=== PATIENT | female | born 1975 | race Caucasian/White ===

== ENCOUNTER 2017-05-12 20:42 | Emergency (ER) | payer OTHER ==
[2017-05-12 20:53] VITALS: RESP 16; TEMP 98.4; O2SAT 96
--- NOTE | 2017-05-12 21:37 | EDPHY ---
H & P Time Seen by Provider: 05/12/17 21:02 HPI/ROS: CHIEF COMPLAINT: Lip laceration HISTORY OF PRESENT ILLNESS: 41-year-old female presents emergency department with a small laceration to her upper lip. Patient was in the bathroom with her son when he reached up and held onto the shower curtain jovana when it fell striking her in the lip. No LOC, she remembers the entire accident, no neck pain, no loose teeth, tetanus is up to date. Smoking Status: Never smoked Physical Exam: GEN: Awake, alert, oriented, no acute distress RESP: nl resp effort, no loose teeth MSK: No C-spine tenderness SKIN: 0.5 cm vertical laceration to right side of upper lip through the vermilion border, full thickness with small 2 mm laceration to inside of lip. Constitutional: Initial Vital Signs Temperature (C) 36.9 C 05/12/17 20:49 Heart Rate 81 05/12/17 20:49 Respiratory Rate 16 05/12/17 20:49 Blood Pressure 124/97 H 05/12/17 20:49 O2 Sat (%) 96 05/12/17 20:49 O2 Delivery Mode Room Air Allergies/Adverse Reactions: ibuprofen Allergy (Verified 05/12/17 20:49) Home Medications: Medication Instructions Recorded NK [No Known Home Meds] 05/12/17 MDM/Departure - MDM Procedures: Procedure: Laceration repair. Verbal consent was obtained from the patient. The 0.5 cm laceration on the upper lip was anesthetized using 1% lidocaine without epinephrine. The wound was carefully irrigated by the emergency department chief technician. Next, the wound was prepped and draped in sterile fashion and explored to its base with a gloved finger. There were no deep structures involved. No vascular injury was identified. No foreign bodies were identified. The laceration is through the vermilion border. The wound was repaired with 6.0 Prolene, 4 simple interrupted sutures. The wound repair was simple. The procedure was performed by myself. Tetanus and antibiotic status were addressed. - Depart Disposition: Home, Routine, Self-Care Clinical Impression: Lip laceration Qualifiers: Encounter type: initial encounter Qualified Code(s): S01.511A - Laceration without foreign body of lip, initial encounter Condition: Good Instructions: Facial Laceration (ED) Additional Instructions: Return to the emergency department in 5-6 days for suture removal, return sooner for any signs of infection such as increased pain, drainage, redness, fevers. Keep a smear of antibiotic ointment on your sutures at all times. Referrals: NONE *PRIMARY CARE P,. [Primary Care Provider] - Follow Up Only If Needed
[2017-05-12 22:30] VITALS: BP 120/83; PULSE 60
== END 2017-05-12 22:29 | disposition home or self-care (01) ==
PROC: 0CQ0XZZ Repair Upper Lip, External Approach (ICD-10-PCS; principal; 2017-05-12)
DX: S01.511A Laceration without foreign body of lip, initial encounter (principal); W20.8XXA Other cause of strike by thrown, projected or falling object, initial encounter; Y99.8 Other external cause status